=== PATIENT | female | born 1990 | race Caucasian/White ===

== ENCOUNTER → 2022-07-15 15:35 | Outpatient (BNVA) | payer SELFPAY | PROVIDERS: PCP Nurse Practitioner Family; Visit Provider Nurse Practitioner Family | DX: R23.1 Pallor (principal); R53.1 Weakness; R43.8 Other disturbances of smell and taste; F41.9 Anxiety disorder, unspecified; F32.A Depression, unspecified; F43.10 Post-traumatic stress disorder, unspecified; F90.9 Attention-deficit hyperactivity disorder, unspecified type; E16.2 Hypoglycemia, unspecified | CPT/HCPCS: 80053; 82306; 82607; 82746; 83036; 83540; 83550; 84443 ==